=== PATIENT | female | born 1990 | race American Indian/Alaskan Native ===

== ENCOUNTER 2021-06-26 14:46 | Emergency (ER) | payer MEDICAID ==
--- NOTE | 2021-06-26 14:58 | Emergency Department Report ---
ED Upper Extremity Inj HPI - General Chief Complaint: Extremity Injury, Upper Stated Complaint: POSS FX OF HAND Time Seen by Provider: 06/26/21 14:56 - History of Present Illness Initial Comments: Patient presents with a right hand injury. She was very upset with someone. She punched a wall. This happened last night. She is complaining of right hand pain. She is right-hand dominant. Pain is in the ulnar aspect of the right hand. She has no wrist pain. She denies numbness or tingling in the hand. She has no elbow or shoulder injury. Pain has been constant and aching. It is worse with movement. It is currently about a 3 out of 10. - Related Data Previous Rx's Medication Instructions Recorded Last Taken Type HYDROcodone/APAP 5-325 [Sullivan 1 each PO Q6HR PRN #12 tablet 06/26/21 Unknown Rx 5/325] Allergies Allergy/AdvReac Type Severity Reaction Status Date / Time No Known Allergies Allergy Unverified 06/26/21 14:58 ED Review of Systems ROS: Stated complaint: POSS FX OF HAND Other details as noted in HPI Comment: All other systems reviewed and negative Constitutional: denies: fever Eyes: denies: eye pain ENT: denies: throat pain Respiratory: denies: cough Cardiovascular: denies: chest pain Endocrine: denies: unexplained weight loss Gastrointestinal: denies: abdominal pain Genitourinary: denies: dysuria Musculoskeletal: as per HPI Skin: denies: rash Neurological: denies: numbness Hematological/Lymphatic: denies: easy bruising ED Past Medical Hx - Past Medical History Previous Medical History?: No - Family History Family history: no significant - Medications Home Medications: Home Medications Medication Instructions Recorded Confirmed Last Taken Type HYDROcodone/APAP 5-325 [Sullivan 1 each PO Q6HR PRN #12 tablet 06/26/21 Unknown Rx 5/325] ED Physical Exam - General Limitations: No Limitations, Other (Pulse ox noted and normal) General appearance: alert, in no apparent distress - Head Head exam: Present: atraumatic, normocephalic - Eye Eye exam: Present: normal appearance, EOMI - ENT ENT exam: Present: normal external ear exam - Neck Neck exam: Present: normal inspection - Respiratory Respiratory exam: Absent: respiratory distress - Cardiovascular Cardiovascular Exam: Absent: JVD - Extremities Exam Extremities exam: Present: other (Obvious tenderness with deformity involving the ulnar aspect of the right hand. This would be consistent with boxer's fracture. Distal neurovascular status is intact) - Back Exam Back exam: Present: full ROM - Neurological Exam Neurological exam: Present: alert, oriented X3, CN II-XII intact, normal gait. Absent: motor sensory deficit - Psychiatric Psychiatric exam: Present: normal affect, normal mood - Skin Skin exam: Present: warm, dry ED Course Vital Signs 06/26/21 14:56 Temperature 98.1 F Pulse Rate 76 Respiratory 16 Rate Blood Pressure 127/76 [Right] O2 Sat by Pulse 100 Oximetry - Reevaluation(s) Reevaluation #1: 06/26/21 14:58 Xrays ordered. Reevaluation #2: 06/27/21 11:11 X-rays are noted. Splint was completed. Patient was discharged. - Procedure Description Procedures done: Procedure note: Splint application. Indication: Fifth metacarpal fracture. Patient was seated. An ulnar gutter splint using OCL was placed in the right hand and wrist. This was done by the ED staff with direct supervision. After the splint was applied, patient had brisk capillary refill and normal sensation. There are no complications. ED Medical Decision Making - Radiology Data Radiology results: report reviewed - Medical Decision Making Patient presented with a boxer's fracture after punching a wall. She did not have any other injury. There was no wrist injury or pain. She did not have any neurovascular compromise. X-rays were reviewed with the patient. We discussed outpatient management. She was referred to orthopedic surgery for formal casting. She can see orthopedic surgery in 7 days. She will not need surgery. Patient will undergo outpatient follow-up and referral. We have discussed specific return precautions. Critical Care Time: No Critical care attestation.: If time is entered above; I have spent that time in minutes in the direct care of this critically ill patient, excluding procedure time. ED Disposition Clinical Impression: Metacarpal bone fracture Qualifiers: Encounter type: initial encounter Metacarpal bone: fifth Fracture type: closed Metacarpal location: base Fracture alignment: nondisplaced Laterality: right Qualified Code(s): S62.346A - Nondisplaced fracture of base of fifth metacarpal bone, right hand, initial encounter for closed fracture Disposition: HOME / SELF CARE / HOMELESS Is pt being admited?: No Condition: Stable Instructions: Boxer's Fracture Additional Instructions: Ice and elevate. Wear the splint. Follow-up with orthopedics as referred. Return for problems. Prescriptions: HYDROcodone/APAP 5-325 [Sullivan 5/325] 1 each PO Q6HR PRN #12 tablet PRN Reason: Pain Referrals: ALEXANDER ROJO MD [Primary Care Provider] - 3-5 Days VENKATA COVARRUBIAS MD [Staff Physician] - 3-5 Days Forms: Work/School Release Form(ED)
[2021-06-26 14:59] VITALS: BP 127/76
[2021-06-26] MEDS ORDERED: IBUPROFEN 800 MG TAB PO ONE (14:59)
--- NOTE | 2021-06-26 15:25 | XRay Report ---
RIGHT HAND 3 VIEWS INDICATION / CLINICAL INFORMATION: Trauma to right hand. History of punching a wall with right hand. COMPARISON: None available. FINDINGS: BONES and JOINT(S): There is an acute comminuted fracture of the neck of the fifth metacarpal with vo lar angulation. No dislocation or other acute findings. No significant arthritis. SOFT TISSUES: Moderate edema is seen dorsally and medially along the hand without other significant a bnormalities. ADDITIONAL FINDINGS: None. IMPRESSION: Acute right fifth metacarpal fracture. Signer Name: Ha Stephen MD Signed: 06/26/2021 3:21 PM Workstation Name: [id number]
== END 2021-06-26 16:47 | disposition home or self-care (01) ==
LOC: ED 14:46
DX: S62.306A Unspecified fracture of fifth metacarpal bone, right hand, initial encounter for closed fracture (principal); X58.XXXA Exposure to other specified factors, initial encounter; Y93.89 Activity, other specified; Y92.89 Other specified places as the place of occurrence of the external cause; Y99.8 Other external cause status
CPT/HCPCS: 99283